=== PATIENT | female | born 1970 | race Caucasian/White ===

== ENCOUNTER 2024-01-02 11:59 | Emergency (ER) | payer BC, OTHER ==
[2024-01-02] MEDS: Ketorolac 60 MG/2 ML SDV IM ONE (12:46)
[2024-01-02] MEDS: HYDROmorphone 1 MG/ML Syringe IM ONE (12:46)
[2024-01-02] MEDS: Ondansetron 4 MG Tab.DIS PO ONE (14:11)
== END 2024-01-02 14:16 | disposition home or self-care (01) ==
LOC: JD.ED 11:59
DX: B02.9 Zoster without complications (principal); Z79.899 Other long term (current) drug therapy
CPT/HCPCS: 71046; 96372; 99283; A9270; J1170; J1885